=== PATIENT | female | born 1935 | race Caucasian/White ===

== ENCOUNTER 2022-10-28 10:23 | Inpatient (IN) | payer MEDICARE, BC ==
[~2022-10-28] VITALS: Ht 165.1 cm; Wt 59.1 kg
[2022-10-28 11:36] LABS: BASOPHILS % (AUTO) 0.4 % (0-1); EOSINOPHILS % (AUTO) 0.3 % (0-6); HEMATOCRIT 34.1 % (35.0-45.0); HEMOGLOBIN 11.4 g/dl (12.0-16.0); LYMPHOCYTES # (AUTO) 1.4 X10'3 (1.1-4.8); LYMPHOCYTES % (AUTO) 20.2 % (21-51); MEAN CORPUSCULAR HEMOGLOBIN 29.1 PG (27.0-31.0); MEAN CORPUSCULAR HGB CONC 33.5 g/dL (33.0-36.5); MONOCYTES # (AUTO) 0.7 X10'3 (0-0.9); MONOCYTES % (AUTO) 10.5 % (2-12); NEUTROPHILS # (AUTO) 4.6 X10'3 (1.8-7.7); NEUTROPHILS % (AUTO) 68.6 % (42-75); PLATELET COUNT 333 X10'3 (140-440); RED BLOOD COUNT 3.92 X10'6 (4.20-5.60); WHITE BLOOD COUNT 6.7 X10'3 (4.5-11.0)
[2022-10-28 11:45] LABS: ALANINE AMINOTRANSFERASE 20 U/L (12-78); ALBUMIN 2.5 G/DL (3.4-5.0); ALBUMIN/GLOBULIN RATIO 0.5 (1.1-1.5); ALKALINE PHOSPHATASE 165 IU/L (46-116); ANION GAP 4 (8-16); ASPARTATE AMINO TRANSFERASE 28 U/L (10-37); BILIRUBIN,TOTAL 0.4 MG/DL (0.1-1.0); BLOOD UREA NITROGEN 25 MG/DL (7-18); BUN/CREATININE RATIO 37.9 (6.6-38.0); CALCIUM 8.4 MG/DL (8.5-10.1); CHLORIDE 94 MMOL/L (99-107); CREATININE 0.66 MG/DL (0.40-0.90); GLUCOSE 102 MG/DL (70-104); POTASSIUM 3.2 MMOL/L (3.5-5.1); SODIUM 130 MMOL/L (135-145); TOTAL CARBON DIOXIDE 32.2 MMOL/L (24-32); TOTAL PROTEIN 7.1 G/DL (6.4-8.2); eGFR 85 ML/MIN
[2022-10-28] MEDS ORDERED: piperacillin/tazo 3.375gm/50ml 50 ML IV ONE (11:55)
[2022-10-28] MEDS ORDERED: metroNIDAZOLE-Flagyl 500mg/NS 100 ML IV ONE (11:55)
[2022-10-28] MEDS ORDERED: iohexol 300mg/ml 100ml inj. ONE (12:08)
--- NOTE | 2022-10-28 14:18 | NUR ---
Attempted to insert a collier catheter 2-3 times and also used Coude catheter without success. Lynda RN and myslf tried without success. Lynda RN will notiy Dr. Milner about this. Patient hooked to pure wick catheter to hopefully catch some urine sample.
[2022-10-28] MEDS ORDERED: POTA99TA26 PO (14:54)
[2022-10-28] MEDS ORDERED: CYAN500T71 PO (14:54)
[2022-10-28] MEDS ORDERED: PRIM50TA27 PO (14:54)
[2022-10-28] MEDS ORDERED: CARB-17 PO (14:54)
[2022-10-28] MEDS ORDERED: POLY17PO59 PO (14:54)
[2022-10-28] MEDS ORDERED: PSYL0.524 PO (14:54)
[2022-10-28] MEDS ORDERED: COLL30OI TOP (14:54)
[2022-10-28] MEDS ORDERED: MULT-1055 PO (14:54)
[2022-10-28] MEDS ORDERED: QUET25TA36 PO (14:54)
[2022-10-28] MEDS ORDERED: LACTC PO (14:54)
[2022-10-28] MEDS ORDERED: LISI10TA27 PO (14:54)
[2022-10-28] MEDS ORDERED: HYDR12.55 PO (14:54)
[2022-10-28] MEDS ORDERED: ASPI-611 PO (14:54)
[2022-10-28] MEDS ORDERED: DIGO125T97 PO (14:54)
[2022-10-28 15:23] LABS: CLARITY,URINE CLOUDY (Clear); COLOR,URINE YELLOW (Yellow); GLUCOSE, URINE NEGATIVE (Neg); KETONES,URINE NEGATIVE (Neg); LEUKOCYTE ESTERASE ,URINE MODERATE (Neg); NITRITES, URINE NEGATIVE (Neg); OCCULT BLOOD,URINE SMALL (Neg); PROTEIN,URINE 30 mg/dl (Neg)
[2022-10-28 15:58] LABS: UA COLLECTION TYPE NON-SPECIFIED
[2022-10-28 15:59] LABS: WBC,URINE TNTC /HPF (0-4)
[2022-10-28 16:00] LABS: BACTERIA,URINE 2+ /HPF (Neg); RBC,URINE 0-2 /HPF (0-2); SQUAMOUS EPITHELIAL CELL,UR NONE SEEN /LPF (FEW)
[2022-10-28] MEDS ORDERED: magnesium 4gm in 100ml NS 100 ML IV PRN (16:50)
[2022-10-28] MEDS ORDERED: acetaminophen 325mg tablet PO PRN (16:50)
[2022-10-28] MEDS ORDERED: magnesium hydroxide 30ml (MOM) UD suspension PO PRN (16:50)
[2022-10-28] MEDS ORDERED: ondansetron/PF 4mg/2ml inj IV PRN (16:50)
[2022-10-28] MEDS ORDERED: potassium Cl 40MEQ/1/2NS 520ml 520 ML IV PRN (16:50)
[2022-10-28] MEDS ORDERED: mag hydrox/Alum hydrox/simeth 30ml oral suspension PO PRN (16:50)
[2022-10-28] MEDS ORDERED: magnesium Cl slow-release 64mg tablet PO PRN (16:50)
[2022-10-28] MEDS ORDERED: potassium Cl 20 mEq SR tablet PO PRN (16:50)
[2022-10-28 17:22] LABS: MAGNESIUM 1.9 MG/DL (1.5-2.4)
[2022-10-28] MEDS: normal saline 1000ml 1,000 ML IV SCH (17:35)
[2022-10-28] MEDS: vancomycin/NS 1 GM ADD-VANTAGE 250 ML IV SCH (17:35)
[2022-10-28 20:00] VITALS: BP 114/70
[2022-10-28] MEDS: docusate sod 100mg capsule PO SCH (20:00)
[2022-10-28] MEDS: K and/or MAG REPLACEMENT MC SCH (20:00)
[2022-10-28] MEDS: piperacillin/tazo 3.375gm/50ml 50 ML IV SCH (21:00)
[2022-10-29 05:00] VITALS: BP 103/60
[2022-10-29] MEDS: piperacillin/tazo 3.375gm/50ml 50 ML IV SCH ×3 (05:02→21:15)
[2022-10-29] MEDS: normal saline 1000ml 1,000 ML IV SCH ×3 (06:00→13:36)
[2022-10-29 06:38] LABS: BASOPHILS % (AUTO) 0.4 % (0-1); EOSINOPHILS % (AUTO) 0.9 % (0-6); HEMATOCRIT 29.8 % (35.0-45.0); HEMOGLOBIN 10.1 g/dl (12.0-16.0); LYMPHOCYTES # (AUTO) 1.8 X10'3 (1.1-4.8); LYMPHOCYTES % (AUTO) 33.1 % (21-51); MEAN CORPUSCULAR HEMOGLOBIN 29.3 PG (27.0-31.0); MEAN CORPUSCULAR HGB CONC 33.7 g/dL (33.0-36.5); MEAN CORPUSCULAR VOLUME 86.8 FL (78-98); MEAN PLATELET VOLUME 6.8 FL (7.4-10.4); MONOCYTES # (AUTO) 0.6 X10'3 (0-0.9); MONOCYTES % (AUTO) 11.7 % (2-12); NEUTROPHILS # (AUTO) 2.9 X10'3 (1.8-7.7); NEUTROPHILS % (AUTO) 53.9 % (42-75); PLATELET COUNT 291 X10'3 (140-440); RED BLOOD COUNT 3.44 X10'6 (4.20-5.60); RED CELL DISTRIBUTION WIDTH 14.4 % (11.5-14.5); WHITE BLOOD COUNT 5.4 X10'3 (4.5-11.0)
[2022-10-29 06:44] LABS: ALBUMIN 2.1 G/DL (3.4-5.0); ANION GAP 6 (8-16); BLOOD UREA NITROGEN 18 MG/DL (7-18); BUN/CREATININE RATIO 29.5 (6.6-38.0); CALCIUM 7.9 MG/DL (8.5-10.1); CHLORIDE 99 MMOL/L (99-107); CREATININE 0.61 MG/DL (0.40-0.90); GLUCOSE 81 MG/DL (70-104); MAGNESIUM 1.7 MG/DL (1.5-2.4); POTASSIUM 3.1 MMOL/L (3.5-5.1); SODIUM 134 MMOL/L (135-145); TOTAL CARBON DIOXIDE 29.5 MMOL/L (24-32); eGFR > 90 ML/MIN
[2022-10-29] MEDS: K and/or MAG REPLACEMENT MC SCH ×2 (07:56→19:51)
[2022-10-29 10:00] VITALS: BP 110/74
[2022-10-29] MEDS: docusate sod 100mg capsule PO SCH ×2 (10:52→19:46)
[2022-10-29] MEDS: enoxaparin 40mg/0.4ml syringe SUBCUT SCH (10:52)
[2022-10-29] MEDS: potassium Cl 20 mEq SR tablet PO PRN ×3 (11:44→19:46)
[2022-10-29] MEDS ORDERED: LIDOcaine 2% 10ml TOPICAL JELLY (Urojet) TP ONE (13:00)
--- NOTE | 2022-10-29 14:10 | NUR ---
3rd attempt at collier insertion, unable to obtain correct placement. Dr Valdovinos notified. Continuing wick for now.
[2022-10-29] MEDS: vancomycin/NS 1 GM ADD-VANTAGE 250 ML IV SCH (15:59)
[2022-10-29 18:00] VITALS: BP 125/69
--- NOTE | 2022-10-29 19:01 | NUR ---
Report given to Khushi Puri RN, all questions answered at this time.
--- NOTE | 2022-10-29 19:02 | NUR ---
Patient in room [facility] 348. I have received report from VIVIANA MAJOR and had the opportunity to ask questions and assume patient care.
[2022-10-29] MEDS ORDERED: non-formulary drug (Collagenase Oint* (Santyl Oint*) 1 APPLIC) TOP SCH (20:00)
[2022-10-29] MEDS: QUEtiapine 25mg tablet PO SCH (21:14)
[2022-10-29 22:00] VITALS: BP 115/72
[2022-10-30] MEDS: normal saline 1000ml 1,000 ML IV SCH ×3 (01:39→18:50)
[2022-10-30] MEDS: piperacillin/tazo 3.375gm/50ml 50 ML IV SCH ×3 (04:51→21:27)
[2022-10-30 05:38] LABS: BASOPHILS % (AUTO) 0.5 % (0-1); EOSINOPHILS # (AUTO) 0.1 X10'3 (0-0.9); EOSINOPHILS % (AUTO) 1.9 % (0-6); HEMATOCRIT 32.4 % (35.0-45.0); LYMPHOCYTES # (AUTO) 2.4 X10'3 (1.1-4.8); MEAN CORPUSCULAR HEMOGLOBIN 29.3 PG (27.0-31.0); MEAN CORPUSCULAR HGB CONC 33.9 g/dL (33.0-36.5); MEAN CORPUSCULAR VOLUME 86.4 FL (78-98); MONOCYTES # (AUTO) 0.5 X10'3 (0-0.9); MONOCYTES % (AUTO) 9.3 % (2-12); NEUTROPHILS # (AUTO) 2.6 X10'3 (1.8-7.7); NEUTROPHILS % (AUTO) 46.3 % (42-75); PLATELET COUNT 285 X10'3 (140-440); RED BLOOD COUNT 3.75 X10'6 (4.20-5.60); WHITE BLOOD COUNT 5.7 X10'3 (4.5-11.0)
[2022-10-30 05:46] LABS: ANION GAP 7 (8-16); BLOOD UREA NITROGEN 10 MG/DL (7-18); BUN/CREATININE RATIO 19.2 (6.6-38.0); CALCIUM 8.1 MG/DL (8.5-10.1); CHLORIDE 103 MMOL/L (99-107); CREATININE 0.52 MG/DL (0.40-0.90); GLUCOSE 68 MG/DL (70-104); MAGNESIUM 1.7 MG/DL (1.5-2.4); POTASSIUM 3.6 MMOL/L (3.5-5.1); SODIUM 138 MMOL/L (135-145); TOTAL CARBON DIOXIDE 28.3 MMOL/L (24-32); eGFR > 90 ML/MIN
[2022-10-30 06:00] VITALS: BP 91/48
--- NOTE | 2022-10-30 06:18 | NUR ---
Problems reprioritized. Patient report given, questions answered & plan of care reviewed with NIRMALA MAJOR.
[2022-10-30] MEDS: POTASSIUM GLUCONATE 99 MG PO SCH (08:00)
[2022-10-30] MEDS: [UNRECOGNIZED DRUG - OTHER] PO SCH (08:00)
[2022-10-30] MEDS ORDERED: PSYLLIUM HUSK 0.52 GM PO SCH (08:00)
[2022-10-30] MEDS: K and/or MAG REPLACEMENT MC SCH ×2 (08:00→20:00)
[2022-10-30] MEDS: lisinopril 10 MG tablet PO SCH (08:00)
[2022-10-30] MEDS: HYDROchlorothiazide 12.5mg capsule PO SCH (08:00)
[2022-10-30 10:00] VITALS: BP 96/51
[2022-10-30] MEDS: polyethylene glycol 3350 17gm powd pack PO SCH (12:21)
[2022-10-30] MEDS: docusate sod 100mg capsule PO SCH ×2 (12:23→20:43)
[2022-10-30] MEDS: enoxaparin 40mg/0.4ml syringe SUBCUT SCH (12:23)
[2022-10-30] MEDS: aspirin 81mg, enteric-coated 1 TAB TABLET.DR PO SCH (12:26)
[2022-10-30] MEDS: lactobacillus rhamnosus 10,000 MMU CELLS/CAPSULE PO SCH (12:26)
[2022-10-30] MEDS: digoxin 125mcg (0.125mg) tablet PO SCH (12:26)
[2022-10-30] MEDS: cyanocobalamin 500mcg tablet PO SCH (12:26)
[2022-10-30] MEDS: primidone 50mg tablet PO SCH (12:28)
[2022-10-30 18:30] VITALS: BP 147/60
--- NOTE | 2022-10-30 18:35 | NUR ---
Problems reprioritized. Patient report given, questions answered & plan of care reviewed with PEDRITO ROBLES.
[2022-10-30 19:00] VITALS: BP 147/60
[2022-10-30] MEDS: vancomycin/NS 1 GM ADD-VANTAGE 250 ML IV SCH (19:00)
[2022-10-30] MEDS: QUEtiapine 25mg tablet PO SCH (21:27)
[2022-10-30 23:00] VITALS: BP 108/54
[2022-10-31] MEDS: normal saline 1000ml 1,000 ML IV SCH ×2 (03:35→13:37)
[2022-10-31] MEDS: piperacillin/tazo 3.375gm/50ml 50 ML IV SCH ×3 (05:10→21:34)
[2022-10-31 06:00] VITALS: BP 152/77
[2022-10-31 06:28] LABS: BASOPHILS % (AUTO) 0.4 % (0-1); EOSINOPHILS # (AUTO) 0.2 X10'3 (0-0.9); EOSINOPHILS % (AUTO) 3.6 % (0-6); HEMATOCRIT 29.3 % (35.0-45.0); HEMOGLOBIN 9.9 g/dl (12.0-16.0); LYMPHOCYTES # (AUTO) 2.5 X10'3 (1.1-4.8); LYMPHOCYTES % (AUTO) 44.1 % (21-51); MEAN CORPUSCULAR HEMOGLOBIN 29.1 PG (27.0-31.0); MEAN CORPUSCULAR HGB CONC 33.7 g/dL (33.0-36.5); MEAN CORPUSCULAR VOLUME 86.4 FL (78-98); MEAN PLATELET VOLUME 6.9 FL (7.4-10.4); MONOCYTES # (AUTO) 0.4 X10'3 (0-0.9); MONOCYTES % (AUTO) 7.4 % (2-12); NEUTROPHILS # (AUTO) 2.6 X10'3 (1.8-7.7); NEUTROPHILS % (AUTO) 44.5 % (42-75); PLATELET COUNT 280 X10'3 (140-440); RED BLOOD COUNT 3.39 X10'6 (4.20-5.60); RED CELL DISTRIBUTION WIDTH 14.4 % (11.5-14.5); WHITE BLOOD COUNT 5.7 X10'3 (4.5-11.0)
--- NOTE | 2022-10-31 06:42 | NUR ---
Problems reprioritized. Patient report given, questions answered & plan of care reviewed with AMOS. Addendum: 10/31/22 at 0643 by Qamar Morocho RN Amended: Links added.
[2022-10-31 06:46] LABS: ANION GAP 4 (8-16); BLOOD UREA NITROGEN 12 MG/DL (7-18); CALCIUM 7.7 MG/DL (8.5-10.1); CHLORIDE 100 MMOL/L (99-107); CREATININE 0.48 MG/DL (0.40-0.90); GLUCOSE 75 MG/DL (70-104); POTASSIUM 3.8 MMOL/L (3.5-5.1); SODIUM 131 MMOL/L (135-145); TOTAL CARBON DIOXIDE 27.4 MMOL/L (24-32); eGFR > 90 ML/MIN
[2022-10-31 06:47] LABS: ALBUMIN 1.8 G/DL (3.4-5.0); MAGNESIUM 1.7 MG/DL (1.5-2.4)
[2022-10-31] MEDS: primidone 50mg tablet PO SCH (09:04)
[2022-10-31] MEDS: digoxin 125mcg (0.125mg) tablet PO SCH (09:04)
[2022-10-31] MEDS: enoxaparin 40mg/0.4ml syringe SUBCUT SCH (09:04)
[2022-10-31] MEDS: polyethylene glycol 3350 17gm powd pack PO SCH (09:05)
[2022-10-31] MEDS: HYDROchlorothiazide 12.5mg capsule PO SCH (09:06)
[2022-10-31] MEDS: lisinopril 10 MG tablet PO SCH (09:06)
[2022-10-31] MEDS: aspirin 81mg, enteric-coated 1 TAB TABLET.DR PO SCH (09:06)
[2022-10-31] MEDS: cyanocobalamin 500mcg tablet PO SCH (09:06)
[2022-10-31] MEDS: lactobacillus rhamnosus 10,000 MMU CELLS/CAPSULE PO SCH (09:06)
[2022-10-31] MEDS: [UNRECOGNIZED DRUG - OTHER] PO SCH (09:08)
[2022-10-31] MEDS: K and/or MAG REPLACEMENT MC SCH ×2 (09:08→19:25)
[2022-10-31] MEDS: docusate sod 100mg capsule PO SCH ×2 (09:08→19:25)
[2022-10-31] MEDS: POTASSIUM GLUCONATE 99 MG PO SCH (09:09)
[2022-10-31 11:00] VITALS: BP 119/62
--- NOTE | 2022-10-31 13:15 | NUR ---
PRESSURE ULCER EDUCATION: DEFINITION: A pressure ulcer is an area of skin that breaks down when you stay in one position too long. The constant pressure against the skin reduces the blood flow to that area and the affected tissue dies. CAUSES: "Being bedridden or in a wheelchair "Fragile skin "Having a chronic condition, such as diabetes or vascular disease "Inability to move certain parts of your body without assistance "Older age "Incontinence of urine or stool SYMPTOMS: "A reddened area that DOES NOT turn white when pressed on - this can be the beginning of a pressure ulcer "A blister, deep sore or a crater - these can be advanced pressure ulcers FIRST AID: "Relieve the pressure on this area "Keep the area clean and dry "Call your primary doctor if you see any of the above symptoms "DO NOT massage the area "DO NOT use a donut shaped or ring shaped pillow- these actually interfere with the blood flow and cause complications PREVENTION: "Check for pressure ulcers everyday "Change position at least every two hours to relieve pressure "Use items that help relieve pressure- pillows, sheepskin, foam padding, and powders. "Keep skin clean and dry "Eat healthy well balanced meals "Exercise daily IF YOU SEE ANY OF THESE SYMPTOMS WHILE IN THE HOSPITAL - TELL YOUR NURSE IMMEDIATELY. IF YOU SEE ANY OF THESE SYMPTOMS WHILE AT HOME OR HAVE ANY QUESTIONS OR CONCERNS ABOUT PRESSURE ULCERS - CALL YOUR PRIMARY DOCTOR IMMEDIATELY. Addendum: 10/31/22 at 1316 by Alycia Huddleston RN Amended: Links added.
[2022-10-31] MEDS ORDERED: VANCOMYCIN LEVEL IV ONE (16:30)
--- NOTE | 2022-10-31 17:30 | NUR ---
Call to lab, sandy maya not done
[2022-10-31 18:00] VITALS: BP 119/49
[2022-10-31 18:50] VITALS: BP 119/49
[2022-10-31] MEDS: vancomycin/NS 1 GM ADD-VANTAGE 250 ML IV SCH (19:23)
[2022-10-31] MEDS: QUEtiapine 25mg tablet PO SCH (21:34)
[2022-11-01] MEDS: normal saline 1000ml 1,000 ML IV SCH ×2 (03:40→20:39)
[2022-11-01] MEDS: piperacillin/tazo 3.375gm/50ml 50 ML IV SCH (05:00)
[2022-11-01 05:57] LABS: BASOPHILS % (AUTO) 0.4 % (0-1); EOSINOPHILS # (AUTO) 0.2 X10'3 (0-0.9); EOSINOPHILS % (AUTO) 2.8 % (0-6); HEMATOCRIT 30.7 % (35.0-45.0); HEMOGLOBIN 10.2 g/dl (12.0-16.0); LYMPHOCYTES # (AUTO) 2.5 X10'3 (1.1-4.8); LYMPHOCYTES % (AUTO) 43.8 % (21-51); MEAN CORPUSCULAR HEMOGLOBIN 28.9 PG (27.0-31.0); MEAN CORPUSCULAR HGB CONC 33.2 g/dL (33.0-36.5); MEAN CORPUSCULAR VOLUME 87.1 FL (78-98); MEAN PLATELET VOLUME 6.6 FL (7.4-10.4); MONOCYTES # (AUTO) 0.5 X10'3 (0-0.9); MONOCYTES % (AUTO) 8.1 % (2-12); NEUTROPHILS # (AUTO) 2.6 X10'3 (1.8-7.7); NEUTROPHILS % (AUTO) 44.9 % (42-75); PLATELET COUNT 270 X10'3 (140-440); RED BLOOD COUNT 3.53 X10'6 (4.20-5.60); RED CELL DISTRIBUTION WIDTH 14.2 % (11.5-14.5); WHITE BLOOD COUNT 5.8 X10'3 (4.5-11.0)
[2022-11-01 06:00] VITALS: BP 117/67
[2022-11-01 06:07] LABS: ALBUMIN 1.9 G/DL (3.4-5.0); ANION GAP 6 (8-16); BLOOD UREA NITROGEN 8 MG/DL (7-18); BUN/CREATININE RATIO 13.6 (6.6-38.0); CHLORIDE 101 MMOL/L (99-107); CREATININE 0.59 MG/DL (0.40-0.90); GLUCOSE 76 MG/DL (70-104); MAGNESIUM 1.6 MG/DL (1.5-2.4); POTASSIUM 3.8 MMOL/L (3.5-5.1); SODIUM 136 MMOL/L (135-145); TOTAL CARBON DIOXIDE 28.9 MMOL/L (24-32); eGFR > 90 ML/MIN
--- NOTE | 2022-11-01 07:05 | NUR ---
Problems reprioritized. Patient report given, questions answered & plan of care reviewed with AMOS. Addendum: 11/01/22 at 0705 by Qamar Morocho RN Amended: Links added.
[2022-11-01] MEDS: HYDROchlorothiazide 12.5mg capsule PO SCH (09:04)
[2022-11-01] MEDS: lactobacillus rhamnosus 10,000 MMU CELLS/CAPSULE PO SCH (09:04)
[2022-11-01] MEDS: primidone 50mg tablet PO SCH (09:04)
[2022-11-01] MEDS: aspirin 81mg, enteric-coated 1 TAB TABLET.DR PO SCH (09:05)
[2022-11-01] MEDS: cyanocobalamin 500mcg tablet PO SCH (09:05)
[2022-11-01] MEDS: docusate sod 100mg capsule PO SCH ×2 (09:05→20:41)
[2022-11-01] MEDS: lisinopril 10 MG tablet PO SCH (09:08)
[2022-11-01] MEDS: digoxin 125mcg (0.125mg) tablet PO SCH (09:08)
[2022-11-01] MEDS: polyethylene glycol 3350 17gm powd pack PO SCH (09:09)
[2022-11-01] MEDS: enoxaparin 40mg/0.4ml syringe SUBCUT SCH (09:09)
[2022-11-01] MEDS: [UNRECOGNIZED DRUG - OTHER] PO SCH (09:10)
[2022-11-01] MEDS: POTASSIUM GLUCONATE 99 MG PO SCH (09:10)
[2022-11-01] MEDS: K and/or MAG REPLACEMENT MC SCH ×2 (09:18→20:00)
[2022-11-01 11:00] VITALS: BP 118/65
[2022-11-01] MEDS ORDERED: VANCOmycin 1250MG/NS 250ml Bag 250 ML IV SCH (17:00)
--- NOTE | 2022-11-01 17:26 | NUR ---
Phone call from [facility] director. Needing to know "Stage" of sacral decubitus ulcer. "Not allowed to take her if it is stage 3 or worse." Advised her that wound care will be in tomorrow to see patient. Also advised calling earlier in the day when case management is available.
[2022-11-01] MEDS ORDERED: DOXYCYCLINE 100MG CAPSULE PO SCH (17:30)
[2022-11-01] MEDS: amox tr/potassium clavulanate 875/125mg TAB PO SCH (17:32)
[2022-11-01 18:00] VITALS: BP 130/83
--- NOTE | 2022-11-01 18:30 | NUR ---
Patient in room [facility] 348. I have received report from Leti MAJOR and had the opportunity to ask questions and assume patient care.
--- NOTE | 2022-11-01 18:55 | NUR ---
Heel medix boots mentioned by WO are not in the room.
[2022-11-01] MEDS: QUEtiapine 25mg tablet PO SCH (20:41)
[2022-11-01] MEDS: sulfamethoxazole/trimethoprim DS (800/160mg) tablet PO SCH (20:41)
[2022-11-02] VITALS: BP 128/71
[2022-11-02] MEDS: normal saline 1000ml 1,000 ML IV SCH ×2 (00:32→17:51)
[2022-11-02 06:06] LABS: BASOPHILS % (AUTO) 0.4 % (0-1); EOSINOPHILS # (AUTO) 0.2 X10'3 (0-0.9); HEMATOCRIT 29.4 % (35.0-45.0); LYMPHOCYTES # (AUTO) 2.5 X10'3 (1.1-4.8); LYMPHOCYTES % (AUTO) 44.6 % (21-51); MEAN CORPUSCULAR HEMOGLOBIN 29.3 PG (27.0-31.0); MEAN CORPUSCULAR VOLUME 86.3 FL (78-98); MEAN PLATELET VOLUME 6.5 FL (7.4-10.4); MONOCYTES # (AUTO) 0.4 X10'3 (0-0.9); MONOCYTES % (AUTO) 7.5 % (2-12); NEUTROPHILS # (AUTO) 2.5 X10'3 (1.8-7.7); NEUTROPHILS % (AUTO) 43.5 % (42-75); PLATELET COUNT 280 X10'3 (140-440); RED CELL DISTRIBUTION WIDTH 13.9 % (11.5-14.5); WHITE BLOOD COUNT 5.7 X10'3 (4.5-11.0)
[2022-11-02 06:31] LABS: ALBUMIN 1.9 G/DL (3.4-5.0); ANION GAP 6 (8-16); BLOOD UREA NITROGEN 9 MG/DL (7-18); BUN/CREATININE RATIO 18.4 (6.6-38.0); CALCIUM 8.1 MG/DL (8.5-10.1); CHLORIDE 99 MMOL/L (99-107); CREATININE 0.49 MG/DL (0.40-0.90); GLUCOSE 87 MG/DL (70-104); POTASSIUM 3.8 MMOL/L (3.5-5.1); SODIUM 134 MMOL/L (135-145); TOTAL CARBON DIOXIDE 28.9 MMOL/L (24-32); eGFR > 90 ML/MIN
--- NOTE | 2022-11-02 06:40 | NUR ---
Problems reprioritized. Patient report given, questions answered & plan of care reviewed with Vickie MAJOR.
--- NOTE | 2022-11-02 06:40 | NUR ---
No heel medic boots available to put on so both feet elevated to protect heels.
[2022-11-02] MEDS: K and/or MAG REPLACEMENT MC SCH ×2 (07:31→20:00)
[2022-11-02] MEDS: [UNRECOGNIZED DRUG - OTHER] PO SCH (08:00)
[2022-11-02] MEDS: POTASSIUM GLUCONATE 99 MG PO SCH (08:00)
[2022-11-02 08:06] VITALS: BP 121/73
[2022-11-02] MEDS: HYDROchlorothiazide 12.5mg capsule PO SCH (08:15)
[2022-11-02] MEDS: lactobacillus rhamnosus 10,000 MMU CELLS/CAPSULE PO SCH (08:16)
[2022-11-02] MEDS: amox tr/potassium clavulanate 875/125mg TAB PO SCH ×2 (08:16→17:26)
[2022-11-02] MEDS: aspirin 81mg, enteric-coated 1 TAB TABLET.DR PO SCH (08:16)
[2022-11-02] MEDS: primidone 50mg tablet PO SCH (08:16)
[2022-11-02] MEDS: digoxin 125mcg (0.125mg) tablet PO SCH (08:16)
[2022-11-02] MEDS: lisinopril 10 MG tablet PO SCH (08:17)
[2022-11-02] MEDS: docusate sod 100mg capsule PO SCH ×2 (08:17→20:51)
[2022-11-02] MEDS: polyethylene glycol 3350 17gm powd pack PO SCH (08:17)
[2022-11-02] MEDS: sulfamethoxazole/trimethoprim DS (800/160mg) tablet PO SCH ×2 (08:17→20:51)
[2022-11-02] MEDS: enoxaparin 40mg/0.4ml syringe SUBCUT SCH (08:18)
[2022-11-02] MEDS: cyanocobalamin 500mcg tablet PO SCH (08:19)
[2022-11-02 11:00] VITALS: BP 119/67
--- NOTE | 2022-11-02 13:23 | NUR ---
Initial: Pt admit DX UTI, advanced dementia, Parkinsonism, and L ischium wound w/ cellulitis bedbound at baseline per EMR. 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 Pt initial PO poor ~25-50% heart healthy meals though has improved to ~90% avg meals past 2 days following first BM this admit. IF current PO trends persist will meet estimated needs but given wound RD recommends Car smoothyusra BIDARIELLA; MD notified. Pt w/ cachexia per MD note; pt w/ small stature no scaled wt this admit or prior wt hx. Pt appears age-appropriate this AM during RD visit to floor; RN agreeable pt appears age-appropriate. Will monitor for further PO trends and nutrition intervention needs this admit. Rec: 1. continue heart healthy diet per MD; if PO regresses liberalize to regular diet 2. Car smoothie BIDLD for wound healing; pending physician verification in EMR 3. routine bowel regimen 4. scaled wt this admit; subsequent weekly wts Addendum: 11/02/22 at [address] Amended: Links added.
[2022-11-02 18:00] VITALS: BP 130/79
--- NOTE | 2022-11-02 18:42 | NUR ---
Problems reprioritized. Patient report given, questions answered & plan of care reviewed with JOHN MAJOR.
[2022-11-02] MEDS: QUEtiapine 25mg tablet PO SCH (20:50)
[2022-11-03 02:05] VITALS: BP 68/40
[2022-11-03] MEDS ORDERED: normal saline 500ml IV soln 500 ML IV ONE (02:10)
[2022-11-03] MEDS ORDERED: albumin (human) 25% 100 ML IV solution IV ONE (02:15)
[2022-11-03 02:40] VITALS: BP 90/62
[2022-11-03 03:15] LABS: BASOPHILS % (AUTO) 0.2 % (0-1); EOSINOPHILS # (AUTO) 0.2 X10'3 (0-0.9); EOSINOPHILS % (AUTO) 4.5 % (0-6); HEMATOCRIT 28.1 % (35.0-45.0); HEMOGLOBIN 9.5 g/dl (12.0-16.0); LYMPHOCYTES # (AUTO) 2.4 X10'3 (1.1-4.8); LYMPHOCYTES % (AUTO) 44.4 % (21-51); MEAN CORPUSCULAR HEMOGLOBIN 29.3 PG (27.0-31.0); MEAN CORPUSCULAR HGB CONC 33.8 g/dL (33.0-36.5); MEAN CORPUSCULAR VOLUME 86.7 FL (78-98); MEAN PLATELET VOLUME 6.5 FL (7.4-10.4); MONOCYTES # (AUTO) 0.4 X10'3 (0-0.9); MONOCYTES % (AUTO) 6.5 % (2-12); NEUTROPHILS # (AUTO) 2.4 X10'3 (1.8-7.7); NEUTROPHILS % (AUTO) 44.4 % (42-75); PLATELET COUNT 272 X10'3 (140-440); RED BLOOD COUNT 3.24 X10'6 (4.20-5.60); RED CELL DISTRIBUTION WIDTH 14.1 % (11.5-14.5); WHITE BLOOD COUNT 5.4 X10'3 (4.5-11.0)
[2022-11-03 03:17] LABS: D-DIMER 0.62 MG/L FEU (0-0.50)
[2022-11-03 03:21] LABS: ALBUMIN 1.8 G/DL (3.4-5.0); ALBUMIN/GLOBULIN RATIO 0.5 (1.1-1.5); ALKALINE PHOSPHATASE 113 IU/L (46-116); ANION GAP 2 (8-16); ASPARTATE AMINO TRANSFERASE 29 U/L (10-37); BILIRUBIN,TOTAL 0.3 MG/DL (0.1-1.0); BLOOD UREA NITROGEN 10 MG/DL (7-18); BUN/CREATININE RATIO 20.4 (6.6-38.0); CALCIUM 7.7 MG/DL (8.5-10.1); CHLORIDE 102 MMOL/L (99-107); CREATININE 0.49 MG/DL (0.40-0.90); GLUCOSE 82 MG/DL (70-104); POTASSIUM 3.7 MMOL/L (3.5-5.1); SODIUM 134 MMOL/L (135-145); TOTAL CARBON DIOXIDE 29.7 MMOL/L (24-32); TOTAL PROTEIN 5.5 G/DL (6.4-8.2); eGFR > 90 ML/MIN
[2022-11-03 03:31] LABS: MAGNESIUM 1.7 MG/DL (1.5-2.4); PHOSPHORUS 3.3 MG/DL (2.3-4.5)
[2022-11-03 03:33] LABS: ALANINE AMINOTRANSFERASE < 6 U/L (12-78); CREATINE KINASE < 7 U/L (26-192)
--- NOTE | 2022-11-03 03:40 | NUR ---
PT BLOOD 68/40; HR 73 DR PANDYA MADE AWARE AND PLACED ORDERS FOR 500cc N/S BOLUS AND AN ORDER FOR ALBUMIN. PT BP UP TO 90/62 AT 0240 AFTER 500 CC BOLUS; RECEIVING ALBUMIN NOW. PT IS ASYMPTOMATIC NO COMPLAINTS.
[2022-11-03 04:20] VITALS: BP 113/54
--- NOTE | 2022-11-03 06:19 | NUR ---
Problems reprioritized. Patient report given, questions answered & plan of care reviewed with PEDRITO RUSSO.
--- NOTE | 2022-11-03 06:30 | NUR ---
Patient in room [facility] 348. I have received report from Ilana MAJOR and had the opportunity to ask questions and assume patient care.
[2022-11-03 07:27] VITALS: BP 118/70
[2022-11-03] MEDS: sulfamethoxazole/trimethoprim DS (800/160mg) tablet PO SCH ×2 (07:28→22:20)
[2022-11-03] MEDS: digoxin 125mcg (0.125mg) tablet PO SCH (07:29)
[2022-11-03] MEDS: primidone 50mg tablet PO SCH (07:29)
[2022-11-03] MEDS: aspirin 81mg, enteric-coated 1 TAB TABLET.DR PO SCH (07:29)
[2022-11-03] MEDS: docusate sod 100mg capsule PO SCH ×2 (07:29→22:20)
[2022-11-03] MEDS: enoxaparin 40mg/0.4ml syringe SUBCUT SCH (07:30)
[2022-11-03] MEDS: cyanocobalamin 500mcg tablet PO SCH (07:30)
[2022-11-03] MEDS: polyethylene glycol 3350 17gm powd pack PO SCH (07:30)
[2022-11-03] MEDS: K and/or MAG REPLACEMENT MC SCH ×2 (08:00→20:00)
[2022-11-03] MEDS: [UNRECOGNIZED DRUG - OTHER] PO SCH (08:00)
[2022-11-03] MEDS: POTASSIUM GLUCONATE 99 MG PO SCH (08:00)
[2022-11-03] MEDS: lisinopril 10 MG tablet PO SCH (08:00)
[2022-11-03] MEDS: HYDROchlorothiazide 12.5mg capsule PO SCH (08:00)
[2022-11-03] MEDS: lactobacillus rhamnosus 10,000 MMU CELLS/CAPSULE PO SCH (09:40)
[2022-11-03] MEDS: amox tr/potassium clavulanate 875/125mg TAB PO SCH ×2 (09:40→16:59)
[2022-11-03 11:00] VITALS: BP 110/59
--- NOTE | 2022-11-03 11:36 | NUR ---
Pager: [phone] Message: [id number]- Lynda Meeks: Patient BP 68/40 at 0200 this morning, received albumin and 500cc bolus. BP this morning noted 117/52. Scheduled lisinopril and hydrochlorothiazide ordered, would you like it given? TY Addendum: 11/03/22 at [address] Valdovinos aware, received TO to hold scheduled medication. Noted and carried out
[2022-11-03] MEDS: normal saline 1000ml 1,000 ML IV SCH (16:32)
--- NOTE | 2022-11-03 17:44 | NUR ---
I have reviewed and agree with all interventions, assessments performed and documented by MILTON Walker.
--- NOTE | 2022-11-03 18:28 | NUR ---
Problems reprioritized. Patient report given, questions answered & plan of care reviewed with Ilana MAJOR.
[2022-11-03 22:00] VITALS: BP 125/80
[2022-11-03] MEDS: QUEtiapine 25mg tablet PO SCH (22:20)
[2022-11-04 06:00] VITALS: BP 140/87
--- NOTE | 2022-11-04 06:27 | NUR ---
Problems reprioritized. Patient report given, questions answered & plan of care reviewed with PEDRITO GAMEZ.
--- NOTE | 2022-11-04 06:37 | NUR ---
Patient in room [facility] 347. I have received report from JOHN MAJOR and had the opportunity to ask questions and assume patient care.
[2022-11-04 06:42] LABS: BASOPHILS % (AUTO) 0.4 % (0-1); EOSINOPHILS # (AUTO) 0.2 X10'3 (0-0.9); EOSINOPHILS % (AUTO) 3.4 % (0-6); HEMATOCRIT 31.4 % (35.0-45.0); HEMOGLOBIN 10.6 g/dl (12.0-16.0); LYMPHOCYTES # (AUTO) 2.3 X10'3 (1.1-4.8); LYMPHOCYTES % (AUTO) 40.8 % (21-51); MEAN CORPUSCULAR HEMOGLOBIN 29.3 PG (27.0-31.0); MEAN CORPUSCULAR HGB CONC 33.8 g/dL (33.0-36.5); MEAN CORPUSCULAR VOLUME 86.7 FL (78-98); MEAN PLATELET VOLUME 6.6 FL (7.4-10.4); MONOCYTES # (AUTO) 0.3 X10'3 (0-0.9); MONOCYTES % (AUTO) 5.9 % (2-12); NEUTROPHILS # (AUTO) 2.8 X10'3 (1.8-7.7); NEUTROPHILS % (AUTO) 49.5 % (42-75); PLATELET COUNT 313 X10'3 (140-440); RED BLOOD COUNT 3.62 X10'6 (4.20-5.60); WHITE BLOOD COUNT 5.7 X10'3 (4.5-11.0)
[2022-11-04 07:18] LABS: ALANINE AMINOTRANSFERASE 7 U/L (12-78); ALBUMIN 2.5 G/DL (3.4-5.0); ALBUMIN/GLOBULIN RATIO 0.6 (1.1-1.5); ALKALINE PHOSPHATASE 121 IU/L (46-116); ANION GAP 5 (8-16); ASPARTATE AMINO TRANSFERASE 40 U/L (10-37); BILIRUBIN,TOTAL 0.3 MG/DL (0.1-1.0); BLOOD UREA NITROGEN 11 MG/DL (7-18); BUN/CREATININE RATIO 19.3 (6.6-38.0); CALCIUM 8.3 MG/DL (8.5-10.1); CHLORIDE 102 MMOL/L (99-107); CREATININE 0.57 MG/DL (0.40-0.90); GLUCOSE 80 MG/DL (70-104); PHOSPHORUS 3.4 MG/DL (2.3-4.5); POTASSIUM 4.2 MMOL/L (3.5-5.1); SODIUM 136 MMOL/L (135-145); TOTAL CARBON DIOXIDE 29.5 MMOL/L (24-32); TOTAL PROTEIN 6.5 G/DL (6.4-8.2); eGFR > 90 ML/MIN
[2022-11-04] MEDS: [UNRECOGNIZED DRUG - OTHER] PO SCH (07:42)
[2022-11-04] MEDS: K and/or MAG REPLACEMENT MC SCH ×2 (07:43→20:00)
[2022-11-04] MEDS: POTASSIUM GLUCONATE 99 MG PO SCH (07:43)
[2022-11-04] MEDS: polyethylene glycol 3350 17gm powd pack PO SCH (07:53)
[2022-11-04] MEDS: aspirin 81mg, enteric-coated 1 TAB TABLET.DR PO SCH (07:53)
[2022-11-04] MEDS: lisinopril 10 MG tablet PO SCH (07:53)
[2022-11-04] MEDS: primidone 50mg tablet PO SCH (07:53)
[2022-11-04] MEDS: lactobacillus rhamnosus 10,000 MMU CELLS/CAPSULE PO SCH (07:53)
[2022-11-04] MEDS: amox tr/potassium clavulanate 875/125mg TAB PO SCH ×2 (07:53→17:00)
[2022-11-04] MEDS: HYDROchlorothiazide 12.5mg capsule PO SCH (07:53)
[2022-11-04] MEDS: sulfamethoxazole/trimethoprim DS (800/160mg) tablet PO SCH ×2 (07:53→19:44)
[2022-11-04] MEDS: cyanocobalamin 500mcg tablet PO SCH (07:53)
[2022-11-04] MEDS: docusate sod 100mg capsule PO SCH ×2 (07:53→19:44)
[2022-11-04] MEDS: enoxaparin 40mg/0.4ml syringe SUBCUT SCH (07:54)
[2022-11-04] MEDS: digoxin 125mcg (0.125mg) tablet PO SCH (07:55)
[2022-11-04 10:00] VITALS: BP 92/60
[2022-11-04] MEDS: JUVEN Smoothie Arginine/Glut./Ca2+Bmb (Juven 19.3pkt) 240ml cup PO SCH ×2 (12:30→18:05)
[2022-11-04] MEDS: normal saline 1000ml 1,000 ML IV SCH ×2 (12:32→17:01)
[2022-11-04] MEDS ORDERED: VANCOMYCIN LEVEL IV ONE (16:30)
[2022-11-04 18:00] VITALS: BP 118/63
--- NOTE | 2022-11-04 18:11 | NUR ---
Problems reprioritized. Patient report given, questions answered & plan of care reviewed with denise walker rn.
--- NOTE | 2022-11-04 18:30 | NUR ---
Patient in room [facility] 347. I have received report from VERA MAJOR and had the opportunity to ask questions and assume patient care.
[2022-11-04] MEDS: QUEtiapine 25mg tablet PO SCH (19:44)
[2022-11-04 22:00] VITALS: BP 129/67
[2022-11-05 06:00] VITALS: BP 110/67
--- NOTE | 2022-11-05 06:37 | NUR ---
Problems reprioritized. Patient report given, questions answered & plan of care reviewed with JULIO MAJOR.
[2022-11-05 07:01] LABS: BASOPHILS % (AUTO) 0.4 % (0-1); EOSINOPHILS # (AUTO) 0.2 X10'3 (0-0.9); HEMATOCRIT 31.2 % (35.0-45.0); HEMOGLOBIN 10.7 g/dl (12.0-16.0); LYMPHOCYTES # (AUTO) 2.1 X10'3 (1.1-4.8); LYMPHOCYTES % (AUTO) 37.2 % (21-51); MEAN CORPUSCULAR HEMOGLOBIN 29.4 PG (27.0-31.0); MEAN CORPUSCULAR HGB CONC 34.2 g/dL (33.0-36.5); MEAN PLATELET VOLUME 6.8 FL (7.4-10.4); MONOCYTES # (AUTO) 0.3 X10'3 (0-0.9); MONOCYTES % (AUTO) 5.4 % (2-12); NEUTROPHILS # (AUTO) 3.1 X10'3 (1.8-7.7); PLATELET COUNT 333 X10'3 (140-440); RED BLOOD COUNT 3.63 X10'6 (4.20-5.60); RED CELL DISTRIBUTION WIDTH 14.3 % (11.5-14.5); WHITE BLOOD COUNT 5.7 X10'3 (4.5-11.0)
[2022-11-05 07:15] LABS: ALANINE AMINOTRANSFERASE 20 U/L (12-78); ALBUMIN 2.4 G/DL (3.4-5.0); ALBUMIN/GLOBULIN RATIO 0.6 (1.1-1.5); ALKALINE PHOSPHATASE 113 IU/L (46-116); ANION GAP 4 (8-16); ASPARTATE AMINO TRANSFERASE 33 U/L (10-37); BILIRUBIN,TOTAL 0.3 MG/DL (0.1-1.0); BLOOD UREA NITROGEN 14 MG/DL (7-18); BUN/CREATININE RATIO 25.5 (6.6-38.0); CALCIUM 8.1 MG/DL (8.5-10.1); CHLORIDE 102 MMOL/L (99-107); CREATININE 0.55 MG/DL (0.40-0.90); GLUCOSE 85 MG/DL (70-104); MAGNESIUM 1.9 MG/DL (1.5-2.4); PHOSPHORUS 3.3 MG/DL (2.3-4.5); SODIUM 135 MMOL/L (135-145); TOTAL CARBON DIOXIDE 28.7 MMOL/L (24-32); TOTAL PROTEIN 6.2 G/DL (6.4-8.2); eGFR > 90 ML/MIN
[2022-11-05] MEDS: K and/or MAG REPLACEMENT MC SCH ×2 (08:00→20:00)
[2022-11-05] MEDS: polyethylene glycol 3350 17gm powd pack PO SCH (08:49)
[2022-11-05] MEDS: primidone 50mg tablet PO SCH (08:49)
[2022-11-05] MEDS: lisinopril 10 MG tablet PO SCH (08:50)
[2022-11-05] MEDS: HYDROchlorothiazide 12.5mg capsule PO SCH (08:50)
[2022-11-05] MEDS: docusate sod 100mg capsule PO SCH ×2 (08:50→20:28)
[2022-11-05] MEDS: aspirin 81mg, enteric-coated 1 TAB TABLET.DR PO SCH (08:50)
[2022-11-05] MEDS: cyanocobalamin 500mcg tablet PO SCH (08:50)
[2022-11-05] MEDS: digoxin 125mcg (0.125mg) tablet PO SCH (08:50)
[2022-11-05] MEDS: lactobacillus rhamnosus 10,000 MMU CELLS/CAPSULE PO SCH (08:50)
[2022-11-05] MEDS: enoxaparin 40mg/0.4ml syringe SUBCUT SCH (08:51)
[2022-11-05 11:00] VITALS: BP 81/49
--- NOTE | 2022-11-05 11:26 | NUR ---
paged Dr. Valdovinos "[id number] Lynda Meeks BP 81/49. Sleepy but otherwise asymptomatic. Pratima 1647"
[2022-11-05] MEDS: JUVEN Smoothie Arginine/Glut./Ca2+Bmb (Juven 19.3pkt) 240ml cup PO SCH ×2 (12:30→17:30)
[2022-11-05 12:42] VITALS: BP 104/61
--- NOTE | 2022-11-05 18:26 | NUR ---
Patient in room [facility] 347. I have received report from Pratima MAJOR and had the opportunity to ask questions and assume patient care.
[2022-11-05 19:18] VITALS: BP 110/64
[2022-11-05] MEDS: QUEtiapine 25mg tablet PO SCH (20:27)
--- NOTE | 2022-11-05 23:49 | NUR ---
Dressing changed as soiled. Resting comfortably
[2022-11-06 00:38] VITALS: BP 90/47
[2022-11-06] MEDS: normal saline 1000ml 1,000 ML IV SCH ×2 (04:46→23:14)
[2022-11-06 06:00] VITALS: BP 110/62
--- NOTE | 2022-11-06 06:09 | NUR ---
Problems reprioritized. Patient report given, questions answered & plan of care reviewed with Bettina MAJOR.
--- NOTE | 2022-11-06 06:45 | NUR ---
Patient in room [facility] 348B. I have received report from PEDRITO ELLER and had the opportunity to ask questions and assume patient care.
[2022-11-06 07:29] LABS: ALANINE AMINOTRANSFERASE 8 U/L (12-78); ALBUMIN 2.5 G/DL (3.4-5.0); ALBUMIN/GLOBULIN RATIO 0.6 (1.1-1.5); ALKALINE PHOSPHATASE 115 IU/L (46-116); ANION GAP 2 (8-16); ASPARTATE AMINO TRANSFERASE 35 U/L (10-37); BASOPHILS % (AUTO) 0.4 % (0-1); BILIRUBIN,TOTAL 0.4 MG/DL (0.1-1.0); BLOOD UREA NITROGEN 21 MG/DL (7-18); BUN/CREATININE RATIO 38.9 (6.6-38.0); CALCIUM 8.3 MG/DL (8.5-10.1); CHLORIDE 100 MMOL/L (99-107); CREATININE 0.54 MG/DL (0.40-0.90); EOSINOPHILS # (AUTO) 0.2 X10'3 (0-0.9); EOSINOPHILS % (AUTO) 2.5 % (0-6); GLUCOSE 90 MG/DL (70-104); HEMATOCRIT 31.5 % (35.0-45.0); HEMOGLOBIN 10.7 g/dl (12.0-16.0); LYMPHOCYTES # (AUTO) 2.5 X10'3 (1.1-4.8); MAGNESIUM 1.9 MG/DL (1.5-2.4); MEAN CORPUSCULAR HEMOGLOBIN 29.5 PG (27.0-31.0); MEAN CORPUSCULAR HGB CONC 33.9 g/dL (33.0-36.5); MEAN CORPUSCULAR VOLUME 87.1 FL (78-98); MEAN PLATELET VOLUME 7.1 FL (7.4-10.4); MONOCYTES # (AUTO) 0.4 X10'3 (0-0.9); MONOCYTES % (AUTO) 6.4 % (2-12); NEUTROPHILS # (AUTO) 3.2 X10'3 (1.8-7.7); NEUTROPHILS % (AUTO) 50.7 % (42-75); PLATELET COUNT 348 X10'3 (140-440); RED BLOOD COUNT 3.62 X10'6 (4.20-5.60); RED CELL DISTRIBUTION WIDTH 14.2 % (11.5-14.5); SODIUM 130 MMOL/L (135-145); TOTAL CARBON DIOXIDE 28.5 MMOL/L (24-32); TOTAL PROTEIN 6.6 G/DL (6.4-8.2); WHITE BLOOD COUNT 6.3 X10'3 (4.5-11.0); eGFR > 90 ML/MIN
[2022-11-06] MEDS: K and/or MAG REPLACEMENT MC SCH ×2 (08:00→20:00)
[2022-11-06] MEDS: polyethylene glycol 3350 17gm powd pack PO SCH (08:00)
[2022-11-06 11:00] VITALS: BP 125/93
[2022-11-06] MEDS: docusate sod 100mg capsule PO SCH ×2 (11:04→20:00)
[2022-11-06] MEDS: cyanocobalamin 500mcg tablet PO SCH (11:04)
[2022-11-06] MEDS: lisinopril 10 MG tablet PO SCH (11:05)
[2022-11-06] MEDS: primidone 50mg tablet PO SCH (11:05)
[2022-11-06] MEDS: digoxin 125mcg (0.125mg) tablet PO SCH (11:05)
[2022-11-06] MEDS: lactobacillus rhamnosus 10,000 MMU CELLS/CAPSULE PO SCH (11:06)
[2022-11-06] MEDS: aspirin 81mg, enteric-coated 1 TAB TABLET.DR PO SCH (11:06)
[2022-11-06] MEDS: HYDROchlorothiazide 12.5mg capsule PO SCH (11:06)
[2022-11-06] MEDS: enoxaparin 40mg/0.4ml syringe SUBCUT SCH (11:11)
[2022-11-06] MEDS: JUVEN Smoothie Arginine/Glut./Ca2+Bmb (Juven 19.3pkt) 240ml cup PO SCH ×2 (12:30→17:43)
--- NOTE | 2022-11-06 17:44 | NUR ---
I have reviewed and agree with all interventions, assessments performed and documented by MILTON AMANDA .
[2022-11-06 18:00] VITALS: BP 111/63
[2022-11-06 22:00] VITALS: BP 87/48
[2022-11-06] MEDS: QUEtiapine 25mg tablet PO SCH (22:01)
[2022-11-06 23:00] VITALS: BP 92/46
[2022-11-07 06:00] VITALS: BP 92/50
--- NOTE | 2022-11-07 06:33 | NUR ---
Problems reprioritized. Patient report given, questions answered & plan of care reviewed with PEDRITO SILVESTRE.
[2022-11-07 06:59] LABS: ALANINE AMINOTRANSFERASE 12 U/L (12-78); ALBUMIN 2.3 G/DL (3.4-5.0); ALBUMIN/GLOBULIN RATIO 0.6 (1.1-1.5); ALKALINE PHOSPHATASE 100 IU/L (46-116); ANION GAP 3 (8-16); ASPARTATE AMINO TRANSFERASE 31 U/L (10-37); BILIRUBIN,TOTAL 0.3 MG/DL (0.1-1.0); BLOOD UREA NITROGEN 18 MG/DL (7-18); BUN/CREATININE RATIO 37.5 (6.6-38.0); CALCIUM 8.2 MG/DL (8.5-10.1); CHLORIDE 101 MMOL/L (99-107); CREATININE 0.48 MG/DL (0.40-0.90); GLUCOSE 88 MG/DL (70-104); PHOSPHORUS 3.1 MG/DL (2.3-4.5); POTASSIUM 3.9 MMOL/L (3.5-5.1); SODIUM 134 MMOL/L (135-145); TOTAL CARBON DIOXIDE 30.2 MMOL/L (24-32); eGFR > 90 ML/MIN
[2022-11-07 07:05] LABS: BASOPHILS % (AUTO) 0.5 % (0-1); EOSINOPHILS # (AUTO) 0.1 X10'3 (0-0.9); EOSINOPHILS % (AUTO) 2.5 % (0-6); HEMATOCRIT 28.5 % (35.0-45.0); HEMOGLOBIN 9.8 g/dl (12.0-16.0); LYMPHOCYTES # (AUTO) 2.7 X10'3 (1.1-4.8); LYMPHOCYTES % (AUTO) 47.9 % (21-51); MEAN CORPUSCULAR HEMOGLOBIN 29.9 PG (27.0-31.0); MEAN CORPUSCULAR HGB CONC 34.6 g/dL (33.0-36.5); MEAN CORPUSCULAR VOLUME 86.5 FL (78-98); MEAN PLATELET VOLUME 7.1 FL (7.4-10.4); MONOCYTES # (AUTO) 0.5 X10'3 (0-0.9); MONOCYTES % (AUTO) 8.2 % (2-12); NEUTROPHILS # (AUTO) 2.3 X10'3 (1.8-7.7); NEUTROPHILS % (AUTO) 40.9 % (42-75); PLATELET COUNT 311 X10'3 (140-440); RED BLOOD COUNT 3.29 X10'6 (4.20-5.60); RED CELL DISTRIBUTION WIDTH 14.1 % (11.5-14.5); WHITE BLOOD COUNT 5.6 X10'3 (4.5-11.0)
--- NOTE | 2022-11-07 07:51 | NUR ---
Patient in room [facility] 348B. I have received report from PEDRITO GUERRIER and had the opportunity to ask questions and assume patient care.
[2022-11-07] MEDS: digoxin 125mcg (0.125mg) tablet PO SCH (07:54)
[2022-11-07] MEDS: primidone 50mg tablet PO SCH (07:54)
[2022-11-07] MEDS: aspirin 81mg, enteric-coated 1 TAB TABLET.DR PO SCH (07:54)
[2022-11-07] MEDS: lactobacillus rhamnosus 10,000 MMU CELLS/CAPSULE PO SCH (07:54)
[2022-11-07] MEDS: cyanocobalamin 500mcg tablet PO SCH (07:54)
[2022-11-07] MEDS: enoxaparin 40mg/0.4ml syringe SUBCUT SCH (07:57)
[2022-11-07] MEDS: docusate sod 100mg capsule PO SCH ×2 (08:00→20:00)
[2022-11-07] MEDS: polyethylene glycol 3350 17gm powd pack PO SCH (08:00)
[2022-11-07] MEDS: lisinopril 10 MG tablet PO SCH (08:00)
[2022-11-07] MEDS: HYDROchlorothiazide 12.5mg capsule PO SCH (08:00)
[2022-11-07] MEDS: K and/or MAG REPLACEMENT MC SCH ×2 (08:01→20:00)
--- NOTE | 2022-11-07 09:43 | NUR ---
Reassessment: Per WOC note 11/02 stage II PI to left heel appears to be resolving though pt continues with stage III PI to sacrum. Pt continues on a heart healthy diet with fluctuating PO intake, currently averaging 49% PO intake since 11/03. Pt receiving a Car smoothie BIDLD to assist with wound healing and pt with average 75% PO intake of ONS. Combined average PO intake of meals and ONS is meeting 92% estimated energy needs and 82% estimated protein needs. See additional nutrition intervention below that was d/w dietary in hopes of further assisting with meeting estimated nutrient needs. LBM 11/06, documented as large. Will continue to follow and monitor need for additional nutrition intervention. Recommendations: 1. Liberalize to regular diet in view of geriatric age 2. Yogurt WB, Car smoothie BIDLD for wound healing 3. Routine bowel regimen 4. Scaled wt this admit; subsequent weekly scaled wts Addendum: 11/07/22 at [address] Amended: Links added.
[2022-11-07 11:00] VITALS: BP 108/44
[2022-11-07] MEDS: JUVEN Smoothie Arginine/Glut./Ca2+Bmb (Juven 19.3pkt) 240ml cup PO SCH ×2 (12:40→17:58)
--- NOTE | 2022-11-07 14:25 | NUR ---
PRESSURE ULCER EDUCATION: DEFINITION: A pressure ulcer is an area of skin that breaks down when you stay in one position too long. The constant pressure against the skin reduces the blood flow to that area and the affected tissue dies. CAUSES: "Being bedridden or in a wheelchair "Fragile skin "Having a chronic condition, such as diabetes or vascular disease "Inability to move certain parts of your body without assistance "Older age "Incontinence of urine or stool SYMPTOMS: "A reddened area that DOES NOT turn white when pressed on - this can be the beginning of a pressure ulcer "A blister, deep sore or a crater - these can be advanced pressure ulcers FIRST AID: "Relieve the pressure on this area "Keep the area clean and dry "Call your primary doctor if you see any of the above symptoms "DO NOT massage the area "DO NOT use a donut shaped or ring shaped pillow- these actually interfere with the blood flow and cause complications PREVENTION: "Check for pressure ulcers everyday "Change position at least every two hours to relieve pressure "Use items that help relieve pressure- pillows, sheepskin, foam padding, and powders. "Keep skin clean and dry "Eat healthy well balanced meals "Exercise daily IF YOU SEE ANY OF THESE SYMPTOMS WHILE IN THE HOSPITAL - TELL YOUR NURSE IMMEDIATELY. IF YOU SEE ANY OF THESE SYMPTOMS WHILE AT HOME OR HAVE ANY QUESTIONS OR CONCERNS ABOUT PRESSURE ULCERS - CALL YOUR PRIMARY DOCTOR IMMEDIATELY. Addendum: 11/07/22 at 1425 by Angelica Palacios LVN Amended: Links added.
--- NOTE | 2022-11-07 17:41 | NUR ---
I have reviewed and agree with all interventions, assessments performed and documented by MILTON AMANDA .
[2022-11-07 18:30] VITALS: BP 105/64
--- NOTE | 2022-11-07 18:30 | NUR ---
Assumed care of pt after report from Bettina MAJOR.
--- NOTE | 2022-11-07 19:02 | NUR ---
Problems reprioritized. Patient report given, questions answered & plan of care reviewed with PEDRITO KIRAN.
[2022-11-07] MEDS: QUEtiapine 25mg tablet PO SCH (20:36)
[2022-11-07] MEDS: normal saline 1000ml 1,000 ML IV SCH (20:37)
[2022-11-07 22:30] VITALS: BP 122/79
[2022-11-08 06:00] VITALS: BP 148/75
--- NOTE | 2022-11-08 06:15 | NUR ---
Patient in room [facility] 348. I have received report from Corazon MAJOR and had the opportunity to ask questions and assume patient care.
--- NOTE | 2022-11-08 06:31 | NUR ---
Report to Franchesca ROSE.
[2022-11-08] MEDS: K and/or MAG REPLACEMENT MC SCH ×2 (08:00→20:00)
[2022-11-08] MEDS: docusate sod 100mg capsule PO SCH ×2 (08:00→21:51)
[2022-11-08] MEDS: polyethylene glycol 3350 17gm powd pack PO SCH (08:00)
[2022-11-08] MEDS: lactobacillus rhamnosus 10,000 MMU CELLS/CAPSULE PO SCH (10:15)
[2022-11-08] MEDS: HYDROchlorothiazide 12.5mg capsule PO SCH (10:15)
[2022-11-08] MEDS: lisinopril 10 MG tablet PO SCH (10:15)
[2022-11-08] MEDS: cyanocobalamin 500mcg tablet PO SCH (10:16)
[2022-11-08] MEDS: digoxin 125mcg (0.125mg) tablet PO SCH (10:16)
[2022-11-08] MEDS: primidone 50mg tablet PO SCH (10:16)
[2022-11-08] MEDS: aspirin 81mg, enteric-coated 1 TAB TABLET.DR PO SCH (10:16)
[2022-11-08] MEDS: enoxaparin 40mg/0.4ml syringe SUBCUT SCH (10:17)
[2022-11-08 11:05] VITALS: BP 109/65
[2022-11-08] MEDS: JUVEN Smoothie Arginine/Glut./Ca2+Bmb (Juven 19.3pkt) 240ml cup PO SCH ×2 (12:30→17:30)
--- NOTE | 2022-11-08 17:30 | NUR ---
I have reviewed and agree with interventions, assessments, and documentation by Perla Worley LVN.
[2022-11-08 18:00] VITALS: BP 106/69
--- NOTE | 2022-11-08 19:00 | NUR ---
CAME ON SHIFT AND PATIENT'S DAYTIME MEDS WERE NOT SCANNED BUT UNSURE WHY. CLEARED THE MISSED MEDS WITH A NURSING NOTE SO I CAN SCAN MY NIGHTTIME MEDS.
[2022-11-08] MEDS: QUEtiapine 25mg tablet PO SCH (21:47)
[2022-11-08] MEDS: normal saline 1000ml 1,000 ML IV SCH (21:48)
[2022-11-08 21:50] VITALS: BP 116/73
[2022-11-09 06:00] VITALS: BP 102/50
--- NOTE | 2022-11-09 06:23 | NUR ---
Problems reprioritized. Patient report given, questions answered & plan of care reviewed with PEDRITO TRINIDAD.
[2022-11-09] MEDS: docusate sod 100mg capsule PO SCH ×2 (07:41→20:14)
[2022-11-09] MEDS: lactobacillus rhamnosus 10,000 MMU CELLS/CAPSULE PO SCH (07:42)
[2022-11-09] MEDS: aspirin 81mg, enteric-coated 1 TAB TABLET.DR PO SCH (07:42)
[2022-11-09] MEDS: digoxin 125mcg (0.125mg) tablet PO SCH (07:44)
[2022-11-09] MEDS: primidone 50mg tablet PO SCH (07:44)
[2022-11-09] MEDS: cyanocobalamin 500mcg tablet PO SCH (07:45)
[2022-11-09] MEDS: lisinopril 10 MG tablet PO SCH (07:48)
[2022-11-09] MEDS: HYDROchlorothiazide 12.5mg capsule PO SCH (07:48)
[2022-11-09] MEDS: polyethylene glycol 3350 17gm powd pack PO SCH (07:49)
[2022-11-09] MEDS: enoxaparin 40mg/0.4ml syringe SUBCUT SCH (07:51)
[2022-11-09] MEDS: K and/or MAG REPLACEMENT MC SCH ×2 (08:00→20:00)
[2022-11-09] MEDS: JUVEN Smoothie Arginine/Glut./Ca2+Bmb (Juven 19.3pkt) 240ml cup PO SCH ×2 (12:30→18:00)
[2022-11-09 15:29] VITALS: BP 93/57
--- NOTE | 2022-11-09 17:26 | NUR ---
Right wrist IV leaking. Dc'd and found multiple small blisters under the clear adhesive tape.
[2022-11-09 18:00] VITALS: BP 121/69
--- NOTE | 2022-11-09 18:30 | NUR ---
Report to December RN
[2022-11-09] MEDS: QUEtiapine 25mg tablet PO SCH (20:14)
[2022-11-09 22:00] VITALS: BP 110/64
[2022-11-10] MEDS: normal saline 1000ml 1,000 ML IV SCH ×3 (01:45→20:41)
[2022-11-10 06:00] VITALS: BP 135/80
--- NOTE | 2022-11-10 07:01 | NUR ---
Patient in room [facility] 348. I have received report from Renee RN and had the opportunity to ask questions and assume patient care.
[2022-11-10] MEDS: K and/or MAG REPLACEMENT MC SCH ×2 (08:00→19:10)
[2022-11-10] MEDS: primidone 50mg tablet PO SCH (08:44)
[2022-11-10] MEDS: HYDROchlorothiazide 12.5mg capsule PO SCH (08:44)
[2022-11-10] MEDS: lactobacillus rhamnosus 10,000 MMU CELLS/CAPSULE PO SCH (08:44)
[2022-11-10] MEDS: polyethylene glycol 3350 17gm powd pack PO SCH (08:44)
[2022-11-10] MEDS: lisinopril 10 MG tablet PO SCH (08:45)
[2022-11-10] MEDS: digoxin 125mcg (0.125mg) tablet PO SCH (08:46)
[2022-11-10] MEDS: enoxaparin 40mg/0.4ml syringe SUBCUT SCH (08:49)
[2022-11-10] MEDS: cyanocobalamin 500mcg tablet PO SCH (08:49)
[2022-11-10] MEDS: aspirin 81mg, enteric-coated 1 TAB TABLET.DR PO SCH (08:49)
[2022-11-10] MEDS: docusate sod 100mg capsule PO SCH ×2 (08:50→19:16)
[2022-11-10 10:00] VITALS: BP 101/50
[2022-11-10] MEDS: JUVEN Smoothie Arginine/Glut./Ca2+Bmb (Juven 19.3pkt) 240ml cup PO SCH ×2 (13:09→19:16)
--- NOTE | 2022-11-10 17:21 | NUR ---
Physical assessment reviewed by Sarah Beth Cochran Addendum: 11/10/22 at 1722 by Sarah Beth Marsh RN Amended: Links added.
--- NOTE | 2022-11-10 18:02 | NUR ---
Patient received from [facility] Accompanied by family. One person pivit into bed. VSS. RR even and unlabored. 02> 92% 2 liters NC. All safety measures in place and call light in reach. Will continue to monitor. Addendum: 11/10/22 at 1804 by Shaila Donis LVN wrong patient
[2022-11-10 19:00] VITALS: BP 122/69
[2022-11-10] MEDS: QUEtiapine 25mg tablet PO SCH (19:46)
[2022-11-10 22:00] VITALS: BP 119/70
--- NOTE | 2022-11-11 06:15 | NUR ---
Problems reprioritized. Patient report given, questions answered & plan of care reviewed with Diamante MAJOR. Addendum: 11/11/22 at 0615 by Raven Uribe RN Amended: Links added.
[2022-11-11 07:45] VITALS: BP 103/58
[2022-11-11 07:53] LABS: BASOPHILS % (AUTO) 0.8 % (0-1); EOSINOPHILS # (AUTO) 0.2 X10'3 (0-0.9); EOSINOPHILS % (AUTO) 3.8 % (0-6); HEMOGLOBIN 10.4 g/dl (12.0-16.0); LYMPHOCYTES # (AUTO) 2.6 X10'3 (1.1-4.8); LYMPHOCYTES % (AUTO) 48.1 % (21-51); MEAN CORPUSCULAR HEMOGLOBIN 29.4 PG (27.0-31.0); MEAN CORPUSCULAR HGB CONC 33.6 g/dL (33.0-36.5); MEAN CORPUSCULAR VOLUME 87.3 FL (78-98); MEAN PLATELET VOLUME 7.7 FL (7.4-10.4); MONOCYTES # (AUTO) 0.4 X10'3 (0-0.9); MONOCYTES % (AUTO) 7.6 % (2-12); NEUTROPHILS # (AUTO) 2.1 X10'3 (1.8-7.7); NEUTROPHILS % (AUTO) 39.7 % (42-75); PLATELET COUNT 337 X10'3 (140-440); RED BLOOD COUNT 3.55 X10'6 (4.20-5.60); RED CELL DISTRIBUTION WIDTH 14.7 % (11.5-14.5); WHITE BLOOD COUNT 5.4 X10'3 (4.5-11.0)
[2022-11-11] MEDS: K and/or MAG REPLACEMENT MC SCH ×2 (08:00→19:18)
[2022-11-11] MEDS: lisinopril 10 MG tablet PO SCH (08:00)
[2022-11-11 08:21] LABS: ALANINE AMINOTRANSFERASE 7 U/L (12-78); ALBUMIN 2.2 G/DL (3.4-5.0); ALBUMIN/GLOBULIN RATIO 0.6 (1.1-1.5); ALKALINE PHOSPHATASE 99 IU/L (46-116); ANION GAP 3 (8-16); ASPARTATE AMINO TRANSFERASE 27 U/L (10-37); BILIRUBIN,TOTAL 0.3 MG/DL (0.1-1.0); BLOOD UREA NITROGEN 15 MG/DL (7-18); BUN/CREATININE RATIO 37.5 (6.6-38.0); CHLORIDE 100 MMOL/L (99-107); GLUCOSE 83 MG/DL (70-104); PHOSPHORUS 3.4 MG/DL (2.3-4.5); POTASSIUM 4.1 MMOL/L (3.5-5.1); SODIUM 133 MMOL/L (135-145); TOTAL CARBON DIOXIDE 30.1 MMOL/L (24-32); eGFR > 90 ML/MIN
[2022-11-11] MEDS: HYDROchlorothiazide 12.5mg capsule PO SCH (10:10)
[2022-11-11] MEDS: lactobacillus rhamnosus 10,000 MMU CELLS/CAPSULE PO SCH (10:10)
[2022-11-11] MEDS: polyethylene glycol 3350 17gm powd pack PO SCH (10:10)
[2022-11-11] MEDS: cyanocobalamin 500mcg tablet PO SCH (10:10)
[2022-11-11] MEDS: aspirin 81mg, enteric-coated 1 TAB TABLET.DR PO SCH (10:11)
[2022-11-11] MEDS: primidone 50mg tablet PO SCH (10:11)
[2022-11-11] MEDS: docusate sod 100mg capsule PO SCH ×2 (10:11→20:36)
[2022-11-11] MEDS: digoxin 125mcg (0.125mg) tablet PO SCH (10:13)
[2022-11-11] MEDS: enoxaparin 40mg/0.4ml syringe SUBCUT SCH (10:14)
[2022-11-11 11:18] VITALS: BP 125/63
--- NOTE | 2022-11-11 11:46 | NUR ---
Reassessment: PO intake slightly fluctuates, down to average 38% PO intake of meals 11/08 however up to average 67% PO intake 11/09-11/10. Pending documentation of PO intake for today. Pt continues receiving Car smoothie BID and documented with mostly 100% PO intake of ONS. Overall pt meeting estimated nutrient needs. LBM 11/09, receiving routine bowel care. No further nutrition intervention implemented at this time. Will continue to follow. Recommendations: 1. Liberalize to regular diet in view of geriatric age 2. Yogurt WB, Car smoothie BIDLD for wound healing 3. Routine bowel regimen 4. Scaled wt this admit; subsequent weekly scaled wts Addendum: 11/11/22 at [address] Amended: Links added.
[2022-11-11] MEDS: JUVEN Smoothie Arginine/Glut./Ca2+Bmb (Juven 19.3pkt) 240ml cup PO SCH ×2 (12:30→18:00)
[2022-11-11] MEDS: normal saline 1000ml 1,000 ML IV SCH (16:07)
--- NOTE | 2022-11-11 18:26 | NUR ---
Problems reprioritized. Patient report given, questions answered & plan of care reviewed with LICHA MAJOR.
[2022-11-11 18:30] VITALS: BP 131/75
[2022-11-11] MEDS: QUEtiapine 25mg tablet PO SCH (20:36)
[2022-11-11 22:00] VITALS: BP 145/77
[2022-11-12 06:05] LABS: BASOPHILS # (AUTO) 0.1 X10'3 (0-0.2); BASOPHILS % (AUTO) 0.9 % (0-1); EOSINOPHILS # (AUTO) 0.2 X10'3 (0-0.9); HEMATOCRIT 30.7 % (35.0-45.0); HEMOGLOBIN 10.4 g/dl (12.0-16.0); LYMPHOCYTES # (AUTO) 2.2 X10'3 (1.1-4.8); LYMPHOCYTES % (AUTO) 37.3 % (21-51); MEAN CORPUSCULAR HEMOGLOBIN 29.4 PG (27.0-31.0); MEAN CORPUSCULAR HGB CONC 33.7 g/dL (33.0-36.5); MEAN CORPUSCULAR VOLUME 87.2 FL (78-98); MEAN PLATELET VOLUME 7.8 FL (7.4-10.4); MONOCYTES # (AUTO) 0.5 X10'3 (0-0.9); MONOCYTES % (AUTO) 8.2 % (2-12); NEUTROPHILS % (AUTO) 50.6 % (42-75); PLATELET COUNT 347 X10'3 (140-440); RED BLOOD COUNT 3.52 X10'6 (4.20-5.60)
[2022-11-12 06:25] LABS: ALANINE AMINOTRANSFERASE 6 U/L (12-78); ALBUMIN 2.3 G/DL (3.4-5.0); ALBUMIN/GLOBULIN RATIO 0.6 (1.1-1.5); ALKALINE PHOSPHATASE 103 IU/L (46-116); ANION GAP 3 (8-16); ASPARTATE AMINO TRANSFERASE 22 U/L (10-37); BILIRUBIN,TOTAL 0.3 MG/DL (0.1-1.0); BLOOD UREA NITROGEN 19 MG/DL (7-18); BUN/CREATININE RATIO 47.5 (6.6-38.0); CALCIUM 8.5 MG/DL (8.5-10.1); CHLORIDE 100 MMOL/L (99-107); GLUCOSE 84 MG/DL (70-104); MAGNESIUM 1.9 MG/DL (1.5-2.4); PHOSPHORUS 3.3 MG/DL (2.3-4.5); POTASSIUM 3.8 MMOL/L (3.5-5.1); SODIUM 133 MMOL/L (135-145); TOTAL CARBON DIOXIDE 29.8 MMOL/L (24-32); TOTAL PROTEIN 6.1 G/DL (6.4-8.2); eGFR > 90 ML/MIN
[2022-11-12 07:05] VITALS: BP 112/68
[2022-11-12] MEDS: K and/or MAG REPLACEMENT MC SCH ×2 (08:00→19:52)
[2022-11-12] MEDS: cyanocobalamin 500mcg tablet PO SCH (09:28)
[2022-11-12] MEDS: docusate sod 100mg capsule PO SCH ×2 (09:29→19:56)
[2022-11-12] MEDS: digoxin 125mcg (0.125mg) tablet PO SCH (09:29)
[2022-11-12] MEDS: lactobacillus rhamnosus 10,000 MMU CELLS/CAPSULE PO SCH (09:29)
[2022-11-12] MEDS: primidone 50mg tablet PO SCH (09:29)
[2022-11-12] MEDS: aspirin 81mg, enteric-coated 1 TAB TABLET.DR PO SCH (09:30)
[2022-11-12] MEDS: enoxaparin 40mg/0.4ml syringe SUBCUT SCH (09:31)
[2022-11-12] MEDS: polyethylene glycol 3350 17gm powd pack PO SCH (09:31)
[2022-11-12 11:06] VITALS: BP 140/82
[2022-11-12] MEDS: JUVEN Smoothie Arginine/Glut./Ca2+Bmb (Juven 19.3pkt) 240ml cup PO SCH ×2 (12:30→18:17)
[2022-11-12] MEDS: multivitamins, therapeutics tablet PO SCH (16:30)
[2022-11-12] MEDS: folic acid 1mg tablet PO SCH (16:30)
[2022-11-12] MEDS: normal saline 1000ml 1,000 ML IV SCH (16:31)
[2022-11-12 18:00] VITALS: BP 148/84
--- NOTE | 2022-11-12 18:39 | NUR ---
Problems reprioritized. Patient report given, questions answered & plan of care reviewed with yash MAJOR.
[2022-11-12] MEDS: thiamine 100mg tablet PO SCH (19:56)
[2022-11-12] MEDS: QUEtiapine 25mg tablet PO SCH (19:56)
[2022-11-12 22:00] VITALS: BP 130/85
--- NOTE | 2022-11-13 06:09 | NUR ---
Problems reprioritized. Patient report given, questions answered & plan of care reviewed with Tony MAJOR. Addendum: 11/13/22 at 0610 by Raven Uribe RN Amended: Links added.
[2022-11-13 06:59] LABS: BASOPHILS # (AUTO) 0.1 X10'3 (0-0.2); EOSINOPHILS # (AUTO) 0.2 X10'3 (0-0.9); EOSINOPHILS % (AUTO) 3.7 % (0-6); HEMOGLOBIN 10.2 g/dl (12.0-16.0); LYMPHOCYTES # (AUTO) 2.3 X10'3 (1.1-4.8); LYMPHOCYTES % (AUTO) 44.2 % (21-51); MEAN CORPUSCULAR HEMOGLOBIN 29.7 PG (27.0-31.0); MEAN CORPUSCULAR HGB CONC 34.2 g/dL (33.0-36.5); MEAN CORPUSCULAR VOLUME 86.9 FL (78-98); MEAN PLATELET VOLUME 7.6 FL (7.4-10.4); MONOCYTES # (AUTO) 0.4 X10'3 (0-0.9); MONOCYTES % (AUTO) 7.3 % (2-12); NEUTROPHILS # (AUTO) 2.2 X10'3 (1.8-7.7); NEUTROPHILS % (AUTO) 43.8 % (42-75); PLATELET COUNT 339 X10'3 (140-440); RED BLOOD COUNT 3.45 X10'6 (4.20-5.60); RED CELL DISTRIBUTION WIDTH 14.9 % (11.5-14.5); WHITE BLOOD COUNT 5.1 X10'3 (4.5-11.0)
[2022-11-13 07:13] LABS: ALANINE AMINOTRANSFERASE 7 U/L (12-78); ALBUMIN 2.4 G/DL (3.4-5.0); ALBUMIN/GLOBULIN RATIO 0.6 (1.1-1.5); ALKALINE PHOSPHATASE 103 IU/L (46-116); ANION GAP 3 (8-16); ASPARTATE AMINO TRANSFERASE 27 U/L (10-37); BILIRUBIN,TOTAL 0.3 MG/DL (0.1-1.0); BLOOD UREA NITROGEN 21 MG/DL (7-18); BUN/CREATININE RATIO 51.2 (6.6-38.0); CALCIUM 8.3 MG/DL (8.5-10.1); CHLORIDE 100 MMOL/L (99-107); CREATININE 0.41 MG/DL (0.40-0.90); GLUCOSE 90 MG/DL (70-104); MAGNESIUM 1.9 MG/DL (1.5-2.4); PHOSPHORUS 3.8 MG/DL (2.3-4.5); POTASSIUM 3.7 MMOL/L (3.5-5.1); SODIUM 133 MMOL/L (135-145); TOTAL CARBON DIOXIDE 30.2 MMOL/L (24-32); TOTAL PROTEIN 6.1 G/DL (6.4-8.2); eGFR > 90 ML/MIN
[2022-11-13 07:17] VITALS: BP 112/74
[2022-11-13] MEDS: docusate sod 100mg capsule PO SCH ×2 (07:45→21:07)
[2022-11-13] MEDS: lactobacillus rhamnosus 10,000 MMU CELLS/CAPSULE PO SCH (07:45)
[2022-11-13] MEDS: digoxin 125mcg (0.125mg) tablet PO SCH (07:46)
[2022-11-13] MEDS: folic acid 1mg tablet PO SCH (07:46)
[2022-11-13] MEDS: multivitamins, therapeutics tablet PO SCH (07:46)
[2022-11-13] MEDS: aspirin 81mg, enteric-coated 1 TAB TABLET.DR PO SCH (07:46)
[2022-11-13] MEDS: polyethylene glycol 3350 17gm powd pack PO SCH (07:47)
[2022-11-13] MEDS: cyanocobalamin 500mcg tablet PO SCH (07:47)
[2022-11-13] MEDS: thiamine 100mg tablet PO SCH ×2 (07:47→21:08)
[2022-11-13] MEDS: enoxaparin 40mg/0.4ml syringe SUBCUT SCH (07:48)
[2022-11-13] MEDS: K and/or MAG REPLACEMENT MC SCH ×2 (08:00→20:00)
[2022-11-13] MEDS ORDERED: primidone 50mg tablet PO ONE (10:55)
[2022-11-13 11:26] VITALS: BP 80/50
[2022-11-13] MEDS: JUVEN Smoothie Arginine/Glut./Ca2+Bmb (Juven 19.3pkt) 240ml cup PO SCH ×2 (12:30→18:08)
[2022-11-13] MEDS: normal saline 1000ml 1,000 ML IV SCH (12:37)
[2022-11-13] MEDS: sodium chloride 1gm tablet PO SCH ×2 (16:11→21:08)
--- NOTE | 2022-11-13 18:08 | NUR ---
Problems reprioritized. Patient report given, questions answered & plan of care reviewed with Rocio MAJOR.
[2022-11-13 18:30] VITALS: BP 138/82
--- NOTE | 2022-11-13 18:30 | NUR ---
Patient in room [facility] 348. I have received report from PEDRITO GUY and had the opportunity to ask questions and assume patient care. Addendum: 11/14/22 at 0028 by Nadeem Mckinley RN Amended: Links added.
[2022-11-13] MEDS: QUEtiapine 25mg tablet PO SCH (21:07)
[2022-11-13 22:00] VITALS: BP 103/65
--- NOTE | 2022-11-14 01:30 | NUR ---
pT REQUESTED BATH, DECLINED ORAL CARE UNTIL AM. WARM BLANKET GIVEN TOOTHBRUSH AT BEDSIDE. LOTION TO SKIN. Addendum: 11/14/22 at 0153 by Nadeem Mckinley RN Amended: Links added.
[2022-11-14] MEDS: normal saline 1000ml 1,000 ML IV SCH ×2 (01:41→22:45)
[2022-11-14 04:07] LABS: BASOPHILS % (AUTO) 0.7 % (0-1); EOSINOPHILS # (AUTO) 0.1 X10'3 (0-0.9); EOSINOPHILS % (AUTO) 2.3 % (0-6); HEMATOCRIT 28.9 % (35.0-45.0); HEMOGLOBIN 9.9 g/dl (12.0-16.0); LYMPHOCYTES # (AUTO) 2.7 X10'3 (1.1-4.8); LYMPHOCYTES % (AUTO) 45.4 % (21-51); MEAN CORPUSCULAR HEMOGLOBIN 29.9 PG (27.0-31.0); MEAN CORPUSCULAR HGB CONC 34.3 g/dL (33.0-36.5); MEAN CORPUSCULAR VOLUME 87.1 FL (78-98); MEAN PLATELET VOLUME 7.1 FL (7.4-10.4); MONOCYTES # (AUTO) 0.5 X10'3 (0-0.9); NEUTROPHILS # (AUTO) 2.6 X10'3 (1.8-7.7); NEUTROPHILS % (AUTO) 43.6 % (42-75); PLATELET COUNT 335 X10'3 (140-440); RED BLOOD COUNT 3.31 X10'6 (4.20-5.60); RED CELL DISTRIBUTION WIDTH 14.7 % (11.5-14.5)
[2022-11-14 04:32] LABS: ALBUMIN 2.3 G/DL (3.4-5.0); ALBUMIN/GLOBULIN RATIO 0.6 (1.1-1.5); ALKALINE PHOSPHATASE 98 IU/L (46-116); ANION GAP 3 (8-16); ASPARTATE AMINO TRANSFERASE 25 U/L (10-37); BILIRUBIN,TOTAL 0.3 MG/DL (0.1-1.0); BLOOD UREA NITROGEN 28 MG/DL (7-18); BUN/CREATININE RATIO 65.1 (6.6-38.0); CALCIUM 8.2 MG/DL (8.5-10.1); CHLORIDE 101 MMOL/L (99-107); CREATININE 0.43 MG/DL (0.40-0.90); GLUCOSE 95 MG/DL (70-104); MAGNESIUM 1.9 MG/DL (1.5-2.4); PHOSPHORUS 3.7 MG/DL (2.3-4.5); POTASSIUM 3.6 MMOL/L (3.5-5.1); SODIUM 132 MMOL/L (135-145); TOTAL CARBON DIOXIDE 28.2 MMOL/L (24-32); eGFR > 90 ML/MIN
[2022-11-14 04:46] LABS: ALANINE AMINOTRANSFERASE 6 U/L (12-78)
[2022-11-14 05:00] VITALS: BP 101/53
--- NOTE | 2022-11-14 06:44 | NUR ---
Problems reprioritized. Patient report given, questions answered & plan of care reviewed with PEDRITO Linton. Addendum: 11/14/22 at 0644 by Nadeem Mckinley RN Amended: Links added.
--- NOTE | 2022-11-14 06:56 | NUR ---
Received report from night nurse Shyanne MAJOR. Assumed care of patient. Will continue to monitor.
[2022-11-14] MEDS: K and/or MAG REPLACEMENT MC SCH ×2 (08:00→20:00)
[2022-11-14] MEDS: primidone 50mg tablet PO SCH (08:00)
[2022-11-14] MEDS: multivitamins, therapeutics tablet PO SCH (08:00)
[2022-11-14] MEDS: sodium chloride 1gm tablet PO SCH ×4 (08:00→21:17)
[2022-11-14] MEDS: digoxin 125mcg (0.125mg) tablet PO SCH (08:00)
[2022-11-14] MEDS: docusate sod 100mg capsule PO SCH ×2 (08:00→21:16)
[2022-11-14] MEDS: thiamine 100mg tablet PO SCH ×2 (08:00→21:17)
[2022-11-14] MEDS: polyethylene glycol 3350 17gm powd pack PO SCH (08:01)
[2022-11-14] MEDS: folic acid 1mg tablet PO SCH (08:01)
[2022-11-14] MEDS: aspirin 81mg, enteric-coated 1 TAB TABLET.DR PO SCH (08:01)
[2022-11-14] MEDS: cyanocobalamin 500mcg tablet PO SCH (08:01)
[2022-11-14] MEDS: lactobacillus rhamnosus 10,000 MMU CELLS/CAPSULE PO SCH (08:01)
[2022-11-14] MEDS: enoxaparin 40mg/0.4ml syringe SUBCUT SCH (08:03)
[2022-11-14] MEDS: JUVEN Smoothie Arginine/Glut./Ca2+Bmb (Juven 19.3pkt) 240ml cup PO SCH ×2 (12:30→17:37)
[2022-11-14 15:05] VITALS: BP 106/64
--- NOTE | 2022-11-14 17:39 | NUR ---
End of shift note.Problems prioritized. Patient report given, questions answered & plan of care reviewed with NIGHT NURSE. who will assume care of patient. Patient resting in bed with all safety measures and call light within reach.
[2022-11-14 18:30] VITALS: BP 126/71
[2022-11-14] MEDS: QUEtiapine 25mg tablet PO SCH (21:17)
[2022-11-14 22:30] VITALS: BP 109/69
--- NOTE | 2022-11-15 06:16 | NUR ---
Problems reprioritized. Patient report given, questions answered & plan of care reviewed with MILTON Linton. Addendum: 11/15/22 at 0617 by Nadeem Mckinley RN Amended: Links added.
--- NOTE | 2022-11-15 06:23 | NUR ---
daysernie fruit dryer done. Addendum: 11/15/22 at 0624 by Nadeem Mckinley RN Amended: Links added.
[2022-11-15 06:26] LABS: BASOPHILS % (AUTO) 0.4 % (0-1); EOSINOPHILS # (AUTO) 0.2 X10'3 (0-0.9); EOSINOPHILS % (AUTO) 3.5 % (0-6); HEMATOCRIT 30.9 % (35.0-45.0); HEMOGLOBIN 10.6 g/dl (12.0-16.0); LYMPHOCYTES # (AUTO) 2.8 X10'3 (1.1-4.8); MEAN CORPUSCULAR HEMOGLOBIN 29.8 PG (27.0-31.0); MEAN CORPUSCULAR HGB CONC 34.2 g/dL (33.0-36.5); MEAN CORPUSCULAR VOLUME 87.1 FL (78-98); MEAN PLATELET VOLUME 7.5 FL (7.4-10.4); MONOCYTES # (AUTO) 0.5 X10'3 (0-0.9); MONOCYTES % (AUTO) 9.1 % (2-12); NEUTROPHILS # (AUTO) 1.9 X10'3 (1.8-7.7); PLATELET COUNT 314 X10'3 (140-440); RED BLOOD COUNT 3.55 X10'6 (4.20-5.60); RED CELL DISTRIBUTION WIDTH 14.9 % (11.5-14.5); WHITE BLOOD COUNT 5.3 X10'3 (4.5-11.0)
--- NOTE | 2022-11-15 06:32 | NUR ---
received report from night nurse Assumed care of patient. Patient resting at this time. All safety measures in place and call light in reach. Will continue to monitor.
[2022-11-15 06:41] LABS: ALANINE AMINOTRANSFERASE 6 U/L (12-78); ALBUMIN 2.4 G/DL (3.4-5.0); ALBUMIN/GLOBULIN RATIO 0.6 (1.1-1.5); ALKALINE PHOSPHATASE 102 IU/L (46-116); ANION GAP 3 (8-16); ASPARTATE AMINO TRANSFERASE 20 U/L (10-37); BILIRUBIN,TOTAL 0.3 MG/DL (0.1-1.0); BLOOD UREA NITROGEN 20 MG/DL (7-18); BUN/CREATININE RATIO 42.6 (6.6-38.0); CALCIUM 8.4 MG/DL (8.5-10.1); CHLORIDE 104 MMOL/L (99-107); CREATININE 0.47 MG/DL (0.40-0.90); GLUCOSE 74 MG/DL (70-104); PHOSPHORUS 3.2 MG/DL (2.3-4.5); POTASSIUM 3.9 MMOL/L (3.5-5.1); SODIUM 136 MMOL/L (135-145); TOTAL CARBON DIOXIDE 29.3 MMOL/L (24-32); TOTAL PROTEIN 6.3 G/DL (6.4-8.2); eGFR > 90 ML/MIN
[2022-11-15 07:19] LABS: PLATELET ESTIMATE NORMAL; TOTAL CELLS COUNTED 100
[2022-11-15] MEDS: K and/or MAG REPLACEMENT MC SCH ×2 (08:00→20:00)
[2022-11-15] MEDS: digoxin 125mcg (0.125mg) tablet PO SCH (08:00)
[2022-11-15] MEDS: thiamine 100mg tablet PO SCH ×2 (08:30→21:00)
[2022-11-15] MEDS: polyethylene glycol 3350 17gm powd pack PO SCH (08:30)
[2022-11-15] MEDS: docusate sod 100mg capsule PO SCH ×2 (08:30→20:59)
[2022-11-15] MEDS: enoxaparin 40mg/0.4ml syringe SUBCUT SCH (08:30)
[2022-11-15] MEDS: multivitamins, therapeutics tablet PO SCH (08:30)
[2022-11-15] MEDS: sodium chloride 1gm tablet PO SCH ×4 (08:30→21:00)
[2022-11-15] MEDS: aspirin 81mg, enteric-coated 1 TAB TABLET.DR PO SCH (08:31)
[2022-11-15] MEDS: lactobacillus rhamnosus 10,000 MMU CELLS/CAPSULE PO SCH (08:31)
[2022-11-15] MEDS: folic acid 1mg tablet PO SCH (08:31)
[2022-11-15] MEDS: cyanocobalamin 500mcg tablet PO SCH (08:31)
[2022-11-15] MEDS: primidone 50mg tablet PO SCH (08:35)
[2022-11-15 11:00] VITALS: BP 97/55
[2022-11-15] MEDS: JUVEN Smoothie Arginine/Glut./Ca2+Bmb (Juven 19.3pkt) 240ml cup PO SCH ×2 (13:02→17:32)
--- NOTE | 2022-11-15 17:11 | NUR ---
patient alert and resting in bed. All medications administered as ordered. No acute changes this shift. Will report to night nurse. All safety measures in place and call light in reach. Will continue to monitor.
[2022-11-15 17:25] VITALS: BP 102/60
--- NOTE | 2022-11-15 18:25 | NUR ---
Patient in room [facility] 348. I have received report from MILTON Linton and had the opportunity to ask questions and assume patient care.
[2022-11-15] MEDS: QUEtiapine 25mg tablet PO SCH (20:59)
[2022-11-15] MEDS: normal saline 1000ml 1,000 ML IV SCH (21:01)
[2022-11-15 22:00] VITALS: BP 106/81
[2022-11-16 06:00] VITALS: BP 118/61
--- NOTE | 2022-11-16 06:29 | NUR ---
Problems reprioritized. Patient report given, questions answered & plan of care reviewed with PEDRITO Martínez.
--- NOTE | 2022-11-16 07:24 | NUR ---
Patient in room [facility] 348. I have received report from MILEY MAJOR and had the opportunity to ask questions and assume patient care.
[2022-11-16] MEDS: polyethylene glycol 3350 17gm powd pack PO SCH (08:49)
[2022-11-16] MEDS: sodium chloride 1gm tablet PO SCH (08:50)
[2022-11-16] MEDS: lactobacillus rhamnosus 10,000 MMU CELLS/CAPSULE PO SCH (08:50)
[2022-11-16] MEDS: digoxin 125mcg (0.125mg) tablet PO SCH (08:50)
[2022-11-16] MEDS: multivitamins, therapeutics tablet PO SCH (08:50)
[2022-11-16] MEDS: folic acid 1mg tablet PO SCH (08:50)
[2022-11-16] MEDS: aspirin 81mg, enteric-coated 1 TAB TABLET.DR PO SCH (08:50)
[2022-11-16] MEDS: cyanocobalamin 500mcg tablet PO SCH (08:50)
[2022-11-16] MEDS: docusate sod 100mg capsule PO SCH (08:51)
[2022-11-16] MEDS: thiamine 100mg tablet PO SCH (08:51)
[2022-11-16] MEDS: primidone 50mg tablet PO SCH (08:51)
[2022-11-16] MEDS: enoxaparin 40mg/0.4ml syringe SUBCUT SCH (08:52)
--- NOTE | 2022-11-16 13:29 | NUR ---
Reassessment: PO intake continues to slightly fluctuate however overall pt eating well with average 68% PO intake of meals since 11/12 with mostly 100% PO intake of Car smoothie BILD meeting estimated nutrient needs. LBM 11/15, receiving routine bowel care. No further nutrition intervention implemented at this time. Will continue to follow. Recommendations: 1. Liberalize to regular diet in view of geriatric age and pt receiving NS for hyponatremia 2. Yogurt WB, Car smoothie BIDLD for wound healing 3. Routine bowel regimen 4. Scaled wt this admit; subsequent weekly scaled wts Addendum: 11/16/22 at [address] Amended: Links added.
--- NOTE | 2022-11-16 15:45 | NUR ---
Dressing changed and pictured. Report called to cruz Waters LVN, patient transferred to [facility] via [facility] in stable condition
== END 2022-11-16 14:30 | DRG 592 ==
LOC: ER 10:23 → ED HOLD 16:55 → SUR 3N 19:40 → UNDODISIN 11-16 14:30
PROVIDERS: ADMIT Family Medicine; ATTEND Family Medicine
DX: L89.154 Pressure ulcer of sacral region, stage 4 (principal); E43 Unspecified severe protein-calorie malnutrition; R53.2 Functional quadriplegia; E87.1 Hypo-osmolality and hyponatremia; L03.317 Cellulitis of buttock; N30.01 Acute cystitis with hematuria; Z66 Do not resuscitate; B95.1 Streptococcus, group B, as the cause of diseases classified elsewhere; I95.1 Orthostatic hypotension; D64.9 Anemia, unspecified; E87.6 Hypokalemia; B96.4 Proteus (mirabilis) (morganii) as the cause of diseases classified elsewhere; G20 Parkinson's disease; F02.C0 Dementia in other diseases classified elsewhere, severe, without behavioral disturbance, psychotic disturbance, mood disturbance, and anxiety; I10 Essential (primary) hypertension; I48.91 Unspecified atrial fibrillation; Z74.01 Bed confinement status; Z79.899 Other long term (current) drug therapy; Z79.82 Long term (current) use of aspirin; Z68.21 Body mass index [BMI] 21.0-21.9, adult
CPT/HCPCS: 36415; 71045; 74177; 80048; 80053; 80162; 80202; 81001; 82550; 82948; 83605; 83735; 83880; 84100; 84145; 84443; 84484; 85007; 85025; 85379; 85651; 86140; 87040; 87070; 87077; 87081; 87088; 87186; 93005; 93306; 96365; 96367; 97110; 97161; 97530; 97535; 99285; A4340; A6212; A6213; A6223; A6250; A6258; A6266; A6449; G0378; J1650; J2543; J3370; J3490; J7030; J7040; P9047; Q9967